=== PATIENT | female | born 1975 | race Caucasian/White ===

== ENCOUNTER 2016-07-10 01:18 | Emergency (ER) | payer SELFPAY ==
[~2016-07-10] VITALS: Ht 162.6 cm; Wt 69.0 kg
[2016-07-10] MEDS ORDERED: ONDANSETRON HCL 4MG/2ML VIAL IV STA (06:24)
[2016-07-10] MEDS ORDERED: KETOROLAC 30MG/ML VIAL IV STA (06:24)
[2016-07-10] MEDS ORDERED: FAMOTIDINE 20MG/2ML VIAL IV STA (06:24)
[2016-07-10 07:07] LABS: PROTHROMBIN TIME 10.7 sec
[2016-07-10 07:10] LABS: CARBON DIOXIDE 23 mEq/L (21-32); CHLORIDE 110 mEq/L (98-107)
[2016-07-10 07:14] LABS: HCG SCREEN NEGATIVE
[2016-07-10 07:19] LABS: BASOPHILS % 0.7 % (0.0-2.0); EOSINOPHILS % 1.6 % (0.0-5.0); HEMATOCRIT. 37.6 % (36.0-48.0); HEMOGLOBIN. 12.6 g/dL (12.0-16.0); LYMPHOCYTES % 26.9 % (20.0-50.0); MEAN CORPUSCULAR HEMOGLOBIN 31.8 pg (28.0-32.0); MEAN CORPUSCULAR VOLUME 95.4 fL (81.0-99.0); MEAN PLATELET VOLUME 11.6 fl (7.4-10.4); MONOCYTES % 7.9 % (2.0-8.0); NEUTROPHILS % 62.9 % (40.0-76.0); PLATELET 159 x1000/uL (130-400); RED BLOOD CELL COUNT 3.95 mill/uL (4.2-5.4); RED CELL DISTRIBUTION WIDTH 14.6 % (11.6-14.6)
[2016-07-10 07:22] LABS: CLARITY URINE CLEAR (CLEAR); COLOR URINE YELLOW (YELLOW); GLUCOSE URINE NEGATIVE (NEGATIVE); KETONES URINE NEGATIVE (NEGATIVE); LEUKOCYTE ESTERASE URINE 1+ (NEGATIVE); NITRITE URINE NEGATIVE (NEGATIVE); OCCULT BLOOD URINE TRACE (NEGATIVE); PH URINE 5.5 (4.5-8.0); PROTEIN URINE NEGATIVE (NEGATIVE); SPECIFIC GRAVITY URINE 1.022 (1.005-1.030)
[2016-07-10 08:48] VITALS: BP 98/54
== END 2016-07-10 08:50 | disposition home or self-care (01) ==
LOC: ER 01:18
DX: K82.9 Disease of gallbladder, unspecified (principal); R10.13 Epigastric pain; R11.0 Nausea
CPT/HCPCS: 36415; 76705; 80053; 81001; 83690; 84703; 85025; 85610; 96374; 96375; 99285; J1885; J2405; J3490; Z7610

== ENCOUNTER 2019-02-10 08:27 | Emergency (ER) | payer BC ==
[~2019-02-10] VITALS: Ht 160 cm; Wt 69.0 kg
[2019-02-10] MEDS ORDERED: KETOROLAC 60MG/2ML VIAL IM STA (11:01)
[2019-02-10 13:15] VITALS: BP 119/63
== END 2019-02-10 13:30 | disposition home or self-care (01) ==
LOC: ER 08:46
DX: R51 Headache (principal)
CPT/HCPCS: 70450; 81025; 96372; 99284; J1885